=== PATIENT | male | born 1985 | race Caucasian/White ===

== ENCOUNTER 2018-02-26 19:34 | Emergency (ER) | payer OTHER ==
[~2018-02-26] VITALS: Ht 185.4 cm; Wt 113.4 kg
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
--- NOTE | 2018-02-26 20:00 | NUR ---
LACERATION REPAIR EDP AT BEDSIDE FOR LAC REPAIR, 2CM LAC TO RIGHT FRONTAL WITH 4 SUTURES. 5CM LACERATION RIGHT ABOVE USING 8 ADDISON. WOUNDS CLEANED, NEOSPORIN APPLIED,AND BANDAGE PLACED.
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
[2018-02-26] MEDS ORDERED: LIDOCAINE 1% VIAL ONE (20:08)
[2018-02-26] MEDS ORDERED: SODIUM CHLORIDE IR ONE (20:10)
--- NOTE | 2018-02-26 20:14 | NUR ---
LOCATION [address], [facility]
[2018-02-26 20:15] VITALS: BP 150/87
[2018-02-26 20:30] VITALS: BP 137/99
[2018-02-26] MEDS ORDERED: BOOSTRIX TDAP IM ONE (20:30)
[2018-02-26] MEDS ORDERED: MORPHINE SULFATE ONE (20:33)
[2018-02-26] MEDS ORDERED: TRIPLE ANTIBIOTIC OINTMENT TP ONE (20:35)
[2018-02-26] MEDS ORDERED: TETANUS DIPHTHERIA TOXOIDS IM ONE (20:39)
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
[2018-02-26] MEDS ORDERED: MORPHINE SULFATE IM STA (20:41)
[2018-02-26 20:45] VITALS: BP 149/82
[2018-02-26 21:00] VITALS: BP 135/75
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
[2018-02-26 21:54] VITALS: BP 117/85
[2018-02-26 22:09] VITALS: BP 117/85
== END 2018-02-26 22:06 | disposition home or self-care (01) ==
LOC: ER 19:34
DX: S01.01XA Laceration without foreign body of scalp, initial encounter (principal); S80.211A Abrasion, right knee, initial encounter; V87.7XXA Person injured in collision between other specified motor vehicles (traffic), initial encounter; Y93.89 Activity, other specified; Y92.410 Unspecified street and highway as the place of occurrence of the external cause; Y99.8 Other external cause status
CPT/HCPCS: 12002; 70450; 72125; 73030; 73560; 73610; 73630; 90471; 90714; 96372; 99285; A4217; J2001; J2270